=== PATIENT | female | born 1980 ===

== ENCOUNTER 2020-11-05 20:42 | Emergency (ER) | payer BC ==
[2020-11-05 21:39] VITALS: BP 164/95
[2020-11-05] MEDS ORDERED: ASPIRIN 325 MG TAB PO ONE (21:39)
--- NOTE | 2020-11-05 22:00 | XRay Report ---
CHEST 2 VIEWS INDICATION: chest pain [id number]. COMPARISON: None FINDINGS: SUPPORT DEVICES: None. HEART: Within normal limits. LUNGS/PLEURA: No acute air space or interstitial disease. No pneumothorax. ADDITIONAL FINDINGS: None. IMPRESSION: 1. No acute findings. Signer Name: Odin Zelaya MD Signed: 11/05/2020 9:56 PM Workstation Name: [id number]
[2020-11-05 22:23] LABS: Basophils % (Auto) 0.2 % (0.0-1.8); Eosinophils # (Auto) 0.1 K/mm3 (0.0-0.4); Eosinophils % (Auto) 1.2 % (0.0-4.3); Hemoglobin 13.8 gm/dl (10.1-14.3); Lymphocytes % (Auto) 20.5 % (13.4-35.0); Mean Corpuscular HGB Conc 35 % (30-34); Mean Corpuscular Volume 98 fl (79-97); Monocytes # (Auto) 0.8 K/mm3 (0.0-0.8); Monocytes % (Auto) 8.3 % (0.0-7.3); Platelet Count 244 K/mm3 (140-440)
[2020-11-05 22:33] LABS: Alanine Aminotransferase 17 units/L (7-56); Albumin 4.4 g/dL (3.9-5); BUN/Creatinine Ratio 11; Blood Urea Nitrogen 9 mg/dL (7-17); Calcium 9.9 mg/dL (8.4-10.2); Hemolysis Index 5
--- NOTE | 2020-11-07 09:14 | Electrocardiograph Report ---
[facility] Test Date: 2020-11-05 Test Time: 21:29:41 Pat Name: JEANINE TEJADA Department: Room: Gender: F Housefellow: LUBNA : 1980 Requested By: SOURAV OCONNELL III Order Number: [id number] Reading MD: Akira Kate Measurements Intervals Rebuck Rate: 85 P: 57 MI: 145 QRS: 17 QRSD: 79 T: 38 QT: 376 QTc: 447 Interpretive Statements Sinus rhythm nonspecific st-t No previous ECG available for comparison Electronically Signed On 11-07-2020 9:14:02 EDT by Akira Kate
== END 2020-11-06 02:42 | disposition left against medical advice (07) ==
LOC: ED 20:42
DX: R07.9 Chest pain, unspecified (principal); Z53.21 Procedure and treatment not carried out due to patient leaving prior to being seen by health care provider
CPT/HCPCS: 36415; 71046; 80053; 84484; 85025; 93005